=== PATIENT | female | born 1955 | race Caucasian/White ===

== ENCOUNTER 2018-10-08 12:59 | Emergency (ER) | payer MEDICARE ==
[~2018-10-08 12:59] MED LIST: ISOVUE-370 76%-LOCM 1 ML ONE
[2018-10-08 13:41] LABS: #Eosinphils 0.1 thou/uL (0.0-0.7); #Lymphocytes 2.3 thou/uL (1.20-3.40); #Monocytes 0.7 thou/uL (0.11-0.59); #Neutrophils 7.4 thou/uL (1.40-6.50); %Basophils 0.4 % (0.0-1.0); %Eosinophils 0.9 % (0.0-10.0); %Lymphocytes 21.7 % (21.0-51.0); %Monocytes 6.4 % (0.0-10.0); %Neutrophils 70.5 % (42.0-75.0); Hemoglobin 14.7 g/dL (12.0-16.0); Mean Corpuscular HGB CONC 34.3 g/dL (32.0-36.0); Mean Corpuscular Hemoglobin 33.4 pg (27.0-31.0); Mean Corpuscular Volume 97.2 fL (78.0-98.0); Mean Platelet Volume 7.1 fL (7.4-10.4); Platelet Count 287 thou/uL (130-400); RBC Distribution Width 12.1 % (11.5-14.5); Red Blood Cell (RBC) Count 4.42 mill/uL (4.20-5.40); White Blood Cell (WBC) Count 10.5 thou/uL (4.8-10.8)
[2018-10-08] MEDS ORDERED: Ondansetron PF 4 MG/2 ML Vial ONE (13:43)
[2018-10-08] MEDS ORDERED: Ketorolac Tromethamine 30 MG/ML VIAL ONE (13:43)
[2018-10-08 13:44] LABS: INR-International Normal Ratio 0.9; PTT 27.9 SEC (22.9-36.1); Prothrombin Time 12.7 SEC (12.0-14.7)
[2018-10-08 13:57] LABS: ALT (SGPT) 19 U/L (8-55); AST (SGOT) 18 U/L (5-34); Albumin 4.6 g/dL (3.4-4.8); Alkaline Phosphatase 102 U/L (40-150); Anion Gap 14 mmol/L (10-20); BUN (Urea Nitrogen) 14 mg/dL (9.8-20.1); Bilirubin, Total 1.1 mg/dL (0.2-1.2); Calc. Creatinine Clearance 0 mL/min (70-130); Carbon Dioxide 24 mmol/L (23-31); Chloride 105 mmol/L (98-107); Estimated GFR-MDRD 68; Globulin 2.6 g/dL (2.4-3.5); Glucose 105 mg/dL (80-115); Lipase 15 U/L (8-78); Protein, Total 7.2 g/dL (6.0-8.3); Sodium 139 mmol/L (136-145)
[2018-10-08 14:03] LABS: Bilirubin Negative (Negative); Blood, Urine Negative (Negative); Clarity CLEAR (Clear); Glucose, Urine (Dipstick) Negative (Negative); Leukocyte Negative (Negative); Nitrite Negative (Negative); Protein, Urine (Dipstick) Negative (Neg-Trace); Specific Gravity, Urine 1.003 (1.002-1.036); Urobilinogen 0.2 mg/dL (0.2-1.0); pH, Urine 6.5 (5.0-9.0)
--- NOTE | 2018-10-08 14:19 | RAD ---
PORTABLE CHEST: Date: 10/08/18 HISTORY: Weakness. FINDINGS: Lungs appear clear of infiltrate. Heart and mediastinum unremarkable. Vascular markings normal. IMPRESSION: No acute abnormality. POS: C
--- NOTE | 2018-10-08 14:21 | CT ---
CT Abdomen Pelvis W Con HISTORY:Abdominal pain and rectal bleeding, dilatation of the common bile duct was noted on recent MR I of lumbar spine. COMPARISON: MRI examination of the lumbar spine of 09/29/2018. FINDINGS: The lung bases are clear. There is suggestion of some esophageal wall thickening which coul d be on the basis of reflux. Clinical correlation recommended. The liver and spleen are normal in size. There is suggestion of some fatty change of the liver. Pancr eas shows no evidence of mass. The pancreatic duct is borderline in size. There is extrahepatic biliary ductal dilatation. At the level of the pancreatic head the duct measures approximately 9 mm. There is minimal intrahepatic ductal prominence the gallbladder is not distended. There is a probable diverticulum at the level of the ampulla. I do not appreciate a definite ampullary mass or s tone. Correlation with patient's bili remains recommended. Right and left adrenal glands are normal in appearance. Right and left kidneys are within normal limi ts of size. A tiny hypodensity involving the left kidney is statistically most likely a cyst. There is no significant periaortic or mesenteric adenopathy. The left colon is decompressed. There is a mil d amount of stool in the right and transverse colon. There is slight swirling into the bowel mesentery, there is no signs of obstruction although there appears to be groping of mid ileal bowel l oops which appears slightly clustered. This could indicate there is some type of internal hernia but no significant distention seen associated with this. It is felt to be incidental. CT of pelvis performed with contrast enhancement: The appendix is normal. There is no evidence of mas s adenopathy or free fluid. Review of osseous structures show arthritic changes of the spine. IMPRESSION: Mild extrahepatic ductal dilatation of uncertain etiology. There appears to be a divertic ulum near the level of the ampulla which could be a possible cause. No definite ampullary or pancreatic head mass is seen. Correlation with patient's bilirubin is recommended. 2. No acute inflammatory process. Normal appendix.
== END 2018-10-08 15:30 | disposition home or self-care (01) ==
LOC: ERS 12:59
DX: K29.70 Gastritis, unspecified, without bleeding (principal); F41.9 Anxiety disorder, unspecified; F32.9 Major depressive disorder, single episode, unspecified; F17.210 Nicotine dependence, cigarettes, uncomplicated; Z79.899 Other long term (current) drug therapy
CPT/HCPCS: 36415; 71045; 74177; 80053; 81003; 83605; 83690; 85025; 85610; 85730; 86850; 86900; 86901; 93005; 96361; 96374; 96375; J1885; J2405; Q9966

== ENCOUNTER 2018-11-30 13:24 | Outpatient (CLI) | payer MEDICARE ==
--- NOTE | 2018-11-30 13:40 | RAD ---
3 views left hand: 11/30/2018 COMPARISON: None HISTORY: Pain, trauma FINDINGS: There is an obliquely oriented mildly displaced fracture involving the base of the second p roximal phalanx medially. Fracture fragment measures approximately 5 mm and demonstrates approximately 2 mm of displacement. No associated dislocation. There is degenerative change involving the first carpometacarpal joint and the first metacarpal phalangeal joint. There is degenerative change involving the second distal interphalangeal joint. IMPRESSION: Obliquely oriented intra-articular fracture involving the medial base of the second proxi mal phalanx.
== END 2018-11-30 13:25 | disposition home or self-care (01) ==
LOC: RAD-FRANK 13:24
PROVIDERS: ATTEND Nurse Practitioner Family
DX: M79.642 Pain in left hand (principal); S62.611A Displaced fracture of proximal phalanx of left index finger, initial encounter for closed fracture

== ENCOUNTER 2019-07-10 20:03 | Emergency (ER) | payer MEDICARE, OTHER ==
[2019-07-10 20:46] LABS: Bilirubin Negative (Negative); Blood, Urine Negative (Negative); Clarity Clear (Clear); Glucose, Urine (Dipstick) Normal (Negative); Leukocyte Negative Leu/uL (Negative); Nitrite Negative (Negative); Protein, Urine (Dipstick) Negative (Neg-Trace); Urobilinogen Normal mg/dL (Less than 2)
[2019-07-10 20:50] LABS: Pregnancy Test - Urine (BHCG) Negative (Negative); Pregu Control Background? CLEAR/WHITE (CLR/WHITE); Pregu Control Bar Appear? YES (CONTROL BAR); Specific Gravity 1.003 (1.002-1.036)
[2019-07-10 21:00] LABS: Benzodiazepine Screen Detected (NotDetected); Medtox Reader # READER 1; Opiate Screen Detected (NotDetected)
[2019-07-10 21:01] LABS: Amphetamine Not Detected (NotDetected); Barbiturates Screen Not Detected (NotDetected); Cocaine Metabolite Screen Not Detected (NotDetected); Medtox Control Line Valid? VALID (VALID); Methadone Not Detected (NotDetected); Methamphetamine Not Detected (NotDetected); Oxycodone Screen Not Detected (NotDetected); Phencyclidine (PCP) Not Detected (NotDetected); THC/Cannabinoid Screen Not Detected (NotDetected); Tricyclic Screen Not Detected (NotDetected)
[2019-07-10 21:08] LABS: #Basophils 0.1 thou/uL (0.0-0.2); #Eosinphils 0.3 thou/uL (0.0-0.7); #Lymphocytes 3.1 thou/uL (1.20-3.40); #Monocytes 0.5 thou/uL (0.11-0.59); #Neutrophils 4.8 thou/uL (1.40-6.50); %Basophils 1.5 % (0.0-1.0); %Eosinophils 3.7 % (0.0-10.0); %Lymphocytes 35.4 % (21.0-51.0); %Monocytes 5.6 % (0.0-10.0); %Neutrophils 53.8 % (42.0-75.0); Hemoglobin 13.7 g/dL (12.0-16.0); Mean Corpuscular HGB CONC 34.2 g/dL (32.0-36.0); Mean Corpuscular Hemoglobin 32.9 pg (27.0-31.0); Mean Corpuscular Volume 96.2 fL (78.0-98.0); Mean Platelet Volume 6.8 fL (7.4-10.4); Platelet Count 320 thou/uL (130-400); RBC Distribution Width 12.4 % (11.5-14.5); Red Blood Cell (RBC) Count 4.17 mill/uL (4.20-5.40); White Blood Cell (WBC) Count 8.9 thou/uL (4.8-10.8)
[2019-07-10] MEDS ORDERED: Multivitamins, Adult 10 ML, Thiamine HCl 100 MG, Folic Acid 1 MG in Dextrose 5 %-0.45 %... IV SCH (21:15)
[2019-07-10 21:23] LABS: ALT (SGPT) 12 U/L (8-55); AST (SGOT) 16 U/L (5-34); Alcohol 154 mg/dL (Less than 10); Alkaline Phosphatase 116 U/L (40-110); Anion Gap 13 mmol/L (10-20); BUN (Urea Nitrogen) 8 mg/dL (9.8-20.1); Bilirubin, Total 0.3 mg/dL (0.2-1.2); CK (CPK) 98 U/L (29-168); Calc. Creatinine Clearance 0 mL/min (70-130); Carbon Dioxide 26 mmol/L (23-31); Chloride 108 mmol/L (98-107); Estimated GFR-MDRD 74; Globulin 2.5 g/dL (2.4-3.5); Glucose 90 mg/dL (80-115); Potassium 3.8 mmol/L (3.5-5.1); Protein, Total 6.5 g/dL (6.0-8.3); Salicylate Less than 8.0 mg/dL (15.0-30.0); Sodium 143 mmol/L (136-145)
== END 2019-07-11 09:11 ==
LOC: ERS 20:03
DX: T40.2X2A Poisoning by other opioids, intentional self-harm, initial encounter (principal); T42.4X2A Poisoning by benzodiazepines, intentional self-harm, initial encounter; F17.210 Nicotine dependence, cigarettes, uncomplicated
CPT/HCPCS: 80053; 80306; 80307; 81003; 81025; 82550; 84443; 85025; 93005; J3411; J7042